=== PATIENT | female | born 1980 | race Caucasian/White ===

== ENCOUNTER 2025-01-15 09:30 | Outpatient (RCR) | payer MEDICAID, SELFPAY ==
--- NOTE | 2024-12-24 14:46 | PT.OIERPT ---
PT OP Initial Eval Patient Information Outpatient Physical Therapy Treatment Date: 12/24/24 Visit Reasons: Lumbar/Pain in RT hip Medical Diagnosis: M54.42 Treatment Dx #1: Back Pain Treatment Dx #2: Left Hip Pain Start of Care: 12/24/24 Date of Onset: 2 years ago Smoking Status Smoking Status: Never smoker Initial Assessment Subjective: Pt is a 44 y/o female reports of chronic back and left hip pain (08/26). Pt has seen and been treated by chiropractor for 2 years. Pt completed MRI but does not know the result. At times Pt feels pain down to the left knee and numbness in the groin area. Pt has limitation with prolonged sitting, standing, chores, work duties, lifting, walking, and performing recreational activities. Objective: L/S AROM: all motion are WFL with end range pain into extension, right sidebending, and right rotation Hip PROM: all motions are WFL Hip MMTs: grossly 3/5 Posture: left trunk sidebend, right pelvis elevation, scapula wing R>L Special Test: (+) rib hump (+) link test Muscle Length: Hs tightness L>R Assessment: Pt demonstrate back pain consistent with abnormal posture leading to difficulty with ADLs. Pt will benefit from physical therapy to increase mobility, flexibility, and core strength Short Term and Penitentiary Goals 1) Increase spinal mobility WFL in 6 wks to be able to sit and stand more than 30 mins 2) Increase core strength WFL in 6 wks to be able to perform recreational activities 3) Decrease back pain to 2/10 in 6 wks to be able to perform work duties 4) Increase flexibility WFL in 6 wks to be able to perform yardwork 5) Indep with HEP Treatment Plan 1) Manual Therapy 2) Therapeutic Activities 3) Therapeutic Exercises 4) Modalities (ice, heat) Frequency and Duration: 2 x wk for 6 wks Certification Dates: 12/24/24 to 03/26/25 Procedure Charges OP PT Eval Mod Complex 30 minutes: Yes
--- NOTE | 2024-12-31 09:13 | PT.ODAYNRPT ---
PT Outpatient Daily Note OP Daily Note Outpatient Physical Therapy Treatment Date: 12/31/24 Visit Reasons: Lumbar/Pain in RT hip Subjective: Pt reports L hip pain that is worse with prolonged sitting. Objective: Please see flow sheet for ther ex list. Assessment: Pt has high pain with L hip ER, held figure for stretch with L LE. Plan: Continue with pOC. Length of Time (minutes) of Treatment: 30 Minutes Procedure Charges Therapeutic Exercise 30 minutes: Yes
--- NOTE | 2025-01-05 09:31 | PT.ODAYNRPT ---
PT Outpatient Daily Note OP Daily Note Outpatient Physical Therapy Treatment Date: 01/05/25 Visit Reasons: Lumbar/Pain in RT hip Subjective: Pt's back and hip was sore after last session. Pt notice mild relief since last session Objective: Please see flow chart for list of ther ex performed Assessment: patient reports of hip fatigue with side step exercises. added more hip stretching with good tolerance Plan: Continue with PT Length of Time (minutes) of Treatment: 30 Minutes Procedure Charges Therapeutic Exercise 30 minutes: Yes
--- NOTE | 2025-01-07 09:56 | PT.ODAYNRPT ---
PT Outpatient Daily Note OP Daily Note Outpatient Physical Therapy Treatment Date: 01/07/25 Visit Reasons: Lumbar/Pain in RT hip Subjective: Pt mentioned the lower trunk rotation kills her back. Pt likes the heat on the back and wants to continue. Objective: Please see flow chart for list of ther ex perfomed Assessment: added more hip exercises with good tolerance; patient demonstrate improved Hs length post stretching Plan: Continue with PT Length of Time (minutes) of Treatment: 30 Minutes Procedure Charges Therapeutic Exercise 30 minutes: Yes
--- NOTE | 2025-01-13 09:44 | PT.ODAYNRPT ---
PT Outpatient Daily Note OP Daily Note Outpatient Physical Therapy Treatment Date: 01/13/25 Visit Reasons: Lumbar/Pain in RT hip Subjective: Pt reports L hip continues to hurt and be painful. Objective: Please see flow sheet for ther ex list. Assessment: Interventions tolerated with minimal pain. Plan: Continue with pOC. Length of Time (minutes) of Treatment: 30 Minutes Procedure Charges Therapeutic Exercise 30 minutes: Yes
--- NOTE | 2025-01-15 09:36 | PT.ODAYNRPT ---
PT Outpatient Daily Note OP Daily Note Outpatient Physical Therapy Treatment Date: 01/15/25 Visit Reasons: Lumbar/Pain in RT hip Subjective: Pt reports R hip is still painful, just came back from chiropractor. Objective: Please see flow sheet for ther ex list. Assessment: Progression of interventions completed with muscle fatigue but no pain to report. Plan: Continue with poC. Length of Time (minutes) of Treatment: 30 Minutes Procedure Charges Therapeutic Exercise 30 minutes: Yes
== END 2025-01-16 23:59 | disposition home or self-care (01) ==
LOC: CPTX 09:30
PROVIDERS: PCP Chiropractor; Referring Provider Chiropractor; Visit Provider Chiropractor
DX: M54.42 Lumbago with sciatica, left side (principal); M25.552 Pain in left hip; R26.2 Difficulty in walking, not elsewhere classified
CPT/HCPCS: 97110; 97162

== ENCOUNTER 2025-01-29 08:00 | Outpatient (RCR) | payer MEDICAID, SELFPAY ==
--- NOTE | 2025-01-19 15:22 | PT.ODAYNRPT ---
PT Outpatient Daily Note OP Daily Note Outpatient Physical Therapy Treatment Date: 01/19/25 Visit Reasons: LUMBAR PAIN AND RT HIP Subjective: Pt reports back is feeling better today. Objective: Please see flow sheet for ther ex list. Assessment: Pt presents in clinic with no c/o pain allowing for interventions progression. Plan: Continue with pOC. Length of Time (minutes) of Treatment: 30 Minutes Procedure Charges Therapeutic Exercise 30 minutes: Yes
--- NOTE | 2025-01-21 08:42 | PT.ODAYNRPT ---
PT Outpatient Daily Note OP Daily Note Outpatient Physical Therapy Treatment Date: 01/21/25 Visit Reasons: LUMBAR PAIN AND RT HIP Subjective: Pt reports back has been feeling better, notices that she had muscle soreness and muscle fatigue. Objective: Please see flow sheet for ther ex list. Assessment: Progressing core strengthening interventions, pt tolerated well. Plan: Continue with POC. Assess for progress note. Length of Time (minutes) of Treatment: 30 Minutes Procedure Charges Therapeutic Exercise 30 minutes: Yes
--- NOTE | 2025-01-29 12:09 | PT.ODS1RPT ---
PT OP Progress/Discharge Note Date of Service: 01/29/25 Progress Note/DC Note Progress Note/Discharge Note: DC Note Patient Information Visit Reasons: LUMBAR PAIN AND RT HIP Medical Diagnosis: M54.42 Treatment Dx #1: Back Pain Treatment Dx #2: Left Hip Pain Service Continue Service or Discharge: Discharge Discharge Date: 01/29/25 Status Subjective: Pt's back and left hip continues to hurt. Pt continues to see chiropractor, however, no change in pain lately. Due to pain Pt still has difficulty with lifting, walking, chores, self care, work duties, and performing recreational activities. Objective: L/S AROM: all motions are WFL Hip PROM: all motions are WNL Hip MMTs: grossly 3/5 Posture: left trunk sidebend; right pelvis elevation; scapula wing R>L Special Test: (+) rib hump (+) link Assessment: Pt demonstrate improvement with L/S mobility and overall flexibility, however, no change in pain leading to difficulty with ADLs. Pt will no longer benefit from physical therapy due to minimal progression with overall goals. Pt was instructed on HEP last session and educated to continue exercises to maintain overall mobility. Pt performed all exercises safely, thank you for your referrals. Plan: D/C home with HEP and follow up katrina BOWENS PRN Procedure Charges Therapeutic Exercise 30 minutes: Yes
== END 2025-02-15 23:59 | disposition home or self-care (01) ==
LOC: CPTX 08:00
PROVIDERS: PCP Chiropractor; Referring Provider Chiropractor; Visit Provider Chiropractor
DX: M54.42 Lumbago with sciatica, left side (principal); R26.2 Difficulty in walking, not elsewhere classified; G89.29 Other chronic pain
CPT/HCPCS: 97110